=== PATIENT | female | born 1995 | race Caucasian/White ===

== ENCOUNTER 2016-12-28 20:21 | Outpatient (CLI) | payer MEDICAID, OTHER ==
[~2016-12-28] VITALS: Ht 154.9 cm; Wt 85.2 kg
[~2016-12-28 20:21] MED LIST: DIPH25CA39 PO; PREN-39 PO
[2016-12-28 20:48] VITALS: Ht 154.9 cm; Wt 85.2 kg
[2016-12-28] MEDS ORDERED: FOLI0.8C PO (20:48)
[2016-12-28] MEDS ORDERED: CALC600T5 PO (20:48)
[2016-12-28] MEDS ORDERED: FERR325C PO (20:48)
[2016-12-28 20:49] VITALS: BP 112/59; PULSE 82; RESP 20
--- NOTE | 2016-12-28 21:35 | RADRPT ---
PROCEDURE: US OB. CLINICAL INDICATION: labor and 35 weeks gestational age by clinical dates. TECHNIQUE: Multiple sonographic images of the uterus were obtained. The images were revi ewed on a PACS workstation. COMPARISON: No prior studies are available for comparison. FINDINGS: There is a single live intrauterine gestation. heart rate is 166 beats per minute. Measurements were made in order to determine age. The results are as follows: BPD = 8.72 cm. HC = 31.03 cm. AC = 33.84 cm. FL = 7.04 cm. Estimated weight is 3009 +/- 451 grams. LMP growth percentile is 74%. Amniotic fluid index is 17.0 cm. Menstrual age by ultrasound dates is 36 weeks 0 days. The estimated date of delivery is 01/25/2017. Position is cephalic and placenta is fundal left grade II. There is no evidence for an abruption or placenta previa. IMPRESSION: 1. Single live intrauterine gestation of 36 weeks 0 days menstrual age by ultrasound dates. 2. The estimated date of delivery is 01/25/2017. 3. Amniotic fluid index is 17.0 cm. RPTAT: QQ .Thad Davenport MD, Date Time Electronically viewed and signed by .Thad Davenport MD, on 12/28/2016 21:34 .R/
[2016-12-28 22:12] LABS: BASOPHILS % 0.1 % (0.0-2.0); EOSINOPHILS # 0.2 10^3/ul (0.0-0.5); EOSINOPHILS % 1.5 % (0.0-7.0); HEMATOCRIT 35.7 % (37.0-47.0); HEMOGLOBIN 12.4 g/dl (12.0-16.0); LYMPHOCYTES % 18.1 % (15.0-51.0); MEAN CORPUSCULAR HEMOGLOBIN 31.6 pg (29.0-33.0); MEAN CORPUSCULAR HGB CONC 34.6 g/dl (32.0-37.0); MEAN CORPUSCULAR VOLUME 91.3 fl (82.0-101.0); MEAN PLATELET VOLUME 7.9 fl (7.4-10.4); MONOCYTE # 0.9 10^3/ul (0.3-0.9); MONOCYTES % 8.3 % (0.0-11.0); NEUTROPHIL # 7.8 10^3/ul (1.6-7.5); PLATELET COUNT 322 10^3/UL (140-440); RED BLOOD COUNT 3.92 10^6/ul (4.20-5.40); RED CELL DISTRIBUTION WIDTH 13.4 % (11.5-14.5); UNCORRECTED WBC 10.8 10^3/ul (4.8-10.8); WHITE BLOOD COUNT 10.8 10^3/ul (4.8-10.8)
[2016-12-28 22:16] LABS: ALBUMIN 3.4 g/dl (3.3-4.9); POTASSIUM 3.5 mmol/L (3.5-5.1)
[2016-12-28 22:19] LABS: ALBUMIN/GLOBULIN RATIO 1.21; BILIRUBIN,INDIRECT 0.2 mg/dl (0-1.1); BILIRUBIN,TOTAL 0.2 mg/dl (0.2-1.3); CREATININE 0.56 mg/dl (0.44-1.00); TOTAL PROTEIN 6.2 g/dl (6.1-8.1)
[2016-12-28 22:20] LABS: CONDITION 1
[2016-12-28 22:25] LABS: ADD UMIC YES; URINE BILIRUBIN (Dip) NEGATIVE (NEGATIVE); URINE BLOOD (Dip) NEGATIVE (NEGATIVE); URINE GLUCOSE (Dip) NEGATIVE (NEGATIVE); URINE KETONES (Dip) NEGATIVE (NEGATIVE); URINE LEUKOCYTE ESTERASE (Dip) NEGATIVE (NEGATIVE); URINE NITRITE (Dip) NEGATIVE (NEGATIVE); URINE TOTAL PROTEIN (Dip) NEGATIVE (NEGATIVE); URINE UROBILINOGEN (Dip) 1.0 E.U./dL (0.1-1.0)
[2016-12-28 22:39] LABS: URINE COLOR YELLOW (YELLOW)
[2016-12-28 22:40] LABS: BACTERIA,URINE FEW; SQUAMOUS EPITHELIAL CELL,UR MANY; URINE RBCS NONE SEEN /HPF (0)
--- NOTE | 2016-12-28 23:13 | QN ---
Documentation Comment 21 y/o at 35+ weeks with c/o right sided abdominal pain. No N/V. No leakage of fluid or vaginal bleeding. + FM Afebrile VSS Abdomen soft NT Cervix closed NST Reactive OB sono normal Labs reviewed After rest patient states her pain has resolved D/C home. JAYLA WISDOM MD Dec 28, 2016 23:13
--- NOTE | 2016-12-29 02:01 | TRIAGE ---
OB Triage Datetime Report Generated by CPN: 12/29/2016 02:01 Datetime: 12/28/2016 23:06 Stage of : OB Triage Labor Evaluation Frequency: Irregular Monitor Mode: External Duration (sec)2399: 40-50 Quality: Mild Pattern: Normal: <= 5 Contractions in 10 Minutes Resting Tone [place]: Relaxed Heart Rate FHR Baseline Rate: 140 Monitor Mode: External US FHR Baseline Changes: No Baseline Change Variability: Moderate 6-25 bpm Accelerations: 15X15 Decelerations: None Category: Category I Datetime: 12/28/2016 23:04 Stage of : OB Triage Datetime: 12/28/2016 23:00 Stage of : OB Triage Labor Evaluation Frequency: Irregular Monitor Mode: External Duration (sec)2399: 40-90 Quality: Mild Pattern: Normal: <= 5 Contractions in 10 Minutes Resting Tone [place]: Relaxed Heart Rate FHR Baseline Rate: 140 Monitor Mode: External US Variability: Moderate 6-25 bpm Accelerations: 15X15 Decelerations: None Category: Category I Datetime: 12/28/2016 22:40 Stage of : OB Triage Datetime: 12/28/2016 22:00 Stage of : OB Triage Labor Evaluation Frequency: Irregular Monitor Mode: External Duration (sec)2399: 40-100 Quality: Mild Pattern: Normal: <= 5 Contractions in 10 Minutes Resting Tone [place]: Relaxed Heart Rate FHR Baseline Rate: 150 Monitor Mode: External US FHR Baseline Changes: No Baseline Change Variability: Moderate 6-25 bpm Accelerations: 15X15 Decelerations: None Category: Category I Datetime: 12/28/2016 21:42 Vaginal Exam Dilatation (cms): 0.0 Effacement (%): 0 Station: -4 Exam By: KIRK Reeves Membrane Status: Intact Vaginal Bleeding: None Cervix, Consistency: Moderate Cervix, Position: Posterior Datetime: 12/28/2016 21:12 Stage of : OB Triage Datetime: 12/28/2016 21:02 Stage of : OB Triage Datetime: 12/28/2016 21:00 Stage of : OB Triage Labor Evaluation Frequency: x1 Monitor Mode: External Duration (sec)2399: 60 Quality: Mild Pattern: Normal: <= 5 Contractions in 10 Minutes Resting Tone [place]: Relaxed Heart Rate FHR Baseline Rate: 150 Monitor Mode: External US Variability: Moderate 6-25 bpm Accelerations: 15X15 Decelerations: None Category: Category I Datetime: 12/28/2016 20:42 Stage of : OB Triage Assessment Type: Triage Maternal Assessment Level of Consciousness: Fully Conscious DTR's/Clonus: DTRs 2+; No Clonus Headache: Denies Blurred Vision: No Respiratory Effort: Unlabored; Regular Rhythm; Equal Expansion Breath Sounds, Left: Clear and Equal Breath Sounds, Right: Clear and Equal Nausea/Vomiting: Denies RUQ Epigastric Pain: Denies Lower Extremities Edema: None Degree: None Upper Extremities Edema: None Degree: None Facial Edema: None Temperature Route: Oral Fall Risk Assessment History of Falling: (0) No Secondary Diagnosis: (0) No Ambulatory Aid: (0) Bedrest/Nurse Assist IV Therapy: (0) No Gait: (0) Normal/Bedrest/Immobile Mental Status: (0) Oriented to Own Ability Fall Score: 0 Fall Risk Score Definition: No Risk: No action required Pain Assessment Pain Scale: 7 Pain Presence: Constant Pain Type: Sharp Pain Location: Abdomen (Annotations: right-side) Pain Relief Measures: Comfort Measures Datetime: 12/28/2016 20:25 EGA: 35.6 Datetime: 12/28/2016 20:24 Time of Arrival: 12/28/2016 20:18 Arrived By: Wheelchair Arrived From: Home Chief Complaint: Constant right-sided abdominal pain Movement: Present Contractions: Denies/Absent Rupture of Membranes: Denies Vaginal Bleeding: None Vaginal Discharge: Denies Recent Sexual Intercouse: Denies Abdominal Trauma: Not Applicable Patient Complaints: Other Time Provider Notified: 12/28/2016 21:12 Provider Notified: Initial Plan: UA, CBC, CMP, Amylase, Lipase, U/S for EFW _ ILEANA
== END 2016-12-28 23:15 | disposition home or self-care (01) ==
LOC: OBT 20:21 → L-D 20:22 → OBT 23:15
PROVIDERS: ATTEND Obstetrics & Gynecology
DX: O60.03 Preterm labor without delivery, third trimester (principal); Z3A.36 36 weeks gestation of pregnancy
CPT/HCPCS: 76815; 80053; 81001; 82150; 83690; 85025; Z7500; 81003; G0463